=== PATIENT | female | born 1990 | race Caucasian/White ===

== ENCOUNTER 2023-02-02 11:57 | Outpatient (CLI) | payer BC, SELFPAY ==
--- NOTE | 2023-02-02 12:15 | CRLHL7_ITS ---
For Patients: As a result of the Century Cures Act, medical imaging exams and procedure reports are released immediately into your electronic medical record. You may view this report before your referring provider. If you have questions, please contact your health care provider. INDICATION: First trimester scan, establish dates. COMPARISON: 11/16/2021 TECHNIQUE: Real-time mckinley-scale imaging of the pelvis was performed. FINDINGS: Sonographic imaging demonstrates a single living intrauterine gestation. The embryo demonstrates a regular cardiac rate measuring 173 beats per minute. The embryo`s crown-rump length measurement of 2.2 cm corresponds to a gestational age of 8 weeks 6 days with a sonographic due date of 09/08/2023. There is a normal-appearing yolk sac. There are no gross abnormalities noted within the embryo at this early state of development. The gestational sac has a normal appearance. There is no evidence of a perigestational hemorrhage. The amount of fluid within the sac appears appropriate for gestational age. The cervix is closed. The myometrium appears normal. Corpus luteal cyst right ovary. Dermoid cyst left ovary. There are no suspicious fluid collections noted in the cul-de-sac. IMPRESSION: Single living intrauterine with sonographic gestational age 8 weeks 6 days and sonographic due date 09/08/2023. Dictated by Larry Gonzalez MD @ 02/02/2023 1:38:13 PM (Electronically Signed)
== END 2023-02-02 11:58 | disposition home or self-care (01) ==
LOC: US 12:02
PROVIDERS: Visit Provider Advanced Practice Midwife
DX: Z34.91 Encounter for supervision of normal pregnancy, unspecified, first trimester (principal); Z3A.08 8 weeks gestation of pregnancy
CPT/HCPCS: 76817; 93976

== ENCOUNTER 2023-02-10 16:20 | Outpatient (CLI) | payer BC, SELFPAY | END 2023-02-10 16:21 | disposition home or self-care (01) | LOC: NFLDREF 02-11 09:40 | PROVIDERS: Visit Provider Advanced Practice Midwife | DX: Z34.90 Encounter for supervision of normal pregnancy, unspecified, unspecified trimester (principal); Z13.79 Encounter for other screening for genetic and chromosomal anomalies; Z34.80 Encounter for supervision of other normal pregnancy, unspecified trimester | CPT/HCPCS: 80306; 84439; 84443; 86592; 86703; 86762; 86787; 86803; 86850; 86900; 86901; 87086; 87340 ==

== ENCOUNTER 2023-03-02 15:53 | Outpatient (CLI) | payer BC, SELFPAY | END 2023-03-02 15:54 | disposition home or self-care (01) | PROVIDERS: Visit Provider Physician Assistant | DX: Z34.91 Encounter for supervision of normal pregnancy, unspecified, first trimester (principal); Z3A.12 12 weeks gestation of pregnancy | CPT/HCPCS: 84439; 84443; 84481 ==

== ENCOUNTER 2023-04-25 13:03 | Outpatient (CLI) | payer OTHER, SELFPAY ==
--- NOTE | 2023-04-25 13:00 | CRLHL7_ITS ---
For Patients: As a result of the Century Cures Act, medical imaging exams and procedure reports are released immediately into your electronic medical record. You may view this report before your referring provider. If you have questions, please contact your health care provider. INDICATION: Evaluate anatomy. COMPARISON: 02/02/2023 TECHNIQUE: Real time mckinley scale imaging of the fetus was performed as well as color Doppler analysis of the umbilical vessels. FINDINGS: Sonographic imaging demonstrates a single living intrauterine gestation. Fetus demonstrates a regular cardiac rate of 139 beats per minute. Fetus has a variable position. The placenta lies right anterior without evidence of placenta previa. The is of the placenta is located 3.2 cm from the internal cervical os. Amniotic fluid volume appears normal. Single deepest vertical pocket: 4.9 cm. The cervix is closed and measures 4.4 cm in length. The composite ultrasound gestational age is calculated at 21 weeks 2 days with an estimated sonographic due date of 09/03/2023. The estimated weight is 414 grams which lies at the 93rd %. The following biometric measurements were obtained: Biparietal diameter: 5.1 cm/21 weeks 3 days 89th% Head circumference: 18.8 cm/21 weeks 1 day 77th% Abdominal circumference: 16.7 cm/21 weeks 5 days 86th% Femur length: 3.4 cm/20 weeks 6 days 62nd% The HC/AC ratio measures: 1.12 range (1.06-1.24) On anatomic survey, there is a normal appearance of the cerebral ventricles, cavum septi pellucidi, cisterna magna and cerebellum. The nose, lips, and facial profile appear normal. The cervical, thoracic and lumbar spine are well visualized and appear normal. There is a normal four-chamber heart view and the left and right ventricular outflow tracts appear normal. The diaphragm and stomach appear normal. The kidneys and bladder also appear normal. There is a normal three-vessel cord and cord insertion site. The four extremities appear normal. IMPRESSION: Sonographic gestational age 21 weeks 2 days and sonographic due date 09/03/2023. Sonographic age 1 week ahead of the clinical age. No intrinsic abnormalities noted on anatomic survey. Dictated by Larry Gonzalez MD @ 04/26/2023 10:34:47 AM (Electronically Signed)
== END 2023-04-25 13:04 | disposition home or self-care (01) ==
LOC: US 13:04
PROVIDERS: Visit Provider Advanced Practice Midwife
DX: Z34.92 Encounter for supervision of normal pregnancy, unspecified, second trimester (principal); Z3A.21 21 weeks gestation of pregnancy
CPT/HCPCS: 76805

== ENCOUNTER 2023-06-20 13:10 | Outpatient (CLI) | payer OTHER, SELFPAY | END 2023-06-20 13:11 | disposition home or self-care (01) | LOC: NFLDREF 06-23 20:36 | PROVIDERS: Visit Provider Advanced Practice Midwife | DX: Z34.81 Encounter for supervision of other normal pregnancy, first trimester (principal) | CPT/HCPCS: 86592 ==

== ENCOUNTER 2023-08-01 13:00 | Outpatient (RCR) | payer MEDICAID, OTHER, SELFPAY | END 2023-11-29 10:03 | disposition home or self-care (01) | PROVIDERS: Visit Provider Advanced Practice Midwife | DX: O99.891 Other specified diseases and conditions complicating pregnancy (principal); M79.18 Myalgia, other site; R10.2 Pelvic and perineal pain; N39.46 Mixed incontinence; R27.8 Other lack of coordination; Z51.89 Encounter for other specified aftercare | CPT/HCPCS: 97110; 97112; 97161; 97535 ==

== ENCOUNTER 2023-08-15 13:29 | Outpatient (CLI) | payer OTHER, SELFPAY ==
[2023-08-16 22:26] LABS: Strep B DNA Probe Negative (Negative)
[2023-08-17 05:58] LABS: Strep B Susceptibility Needed? No
== END 2023-08-15 13:30 | disposition home or self-care (01) ==
LOC: NFLDREF 13:29
PROVIDERS: Visit Provider Advanced Practice Midwife
DX: Z36.85 Encounter for antenatal screening for Streptococcus B; Z34.83 Encounter for supervision of other normal pregnancy, third trimester
CPT/HCPCS: 87081; 87653

== ENCOUNTER 2023-09-13 13:00 | Outpatient (CLI) | payer OTHER, SELFPAY ==
--- NOTE | 2023-09-13 13:00 | US_ITS ---
Final Report Patient: NEFTALY COLUNGA Facility:?[facility] Patient ID:?[id number] Site Patient ID:?[id number]. Site :?[id number] Study:?US OB Pelvis BPP-09/13/2023 2:14:48 PM Ordering Physician:DAMARIS Final Report: INDICATION: Post dates COMPARISON: 04/25/2023 TECHNIQUE: Real time mckinley scale imaging of the fetus was performed. FINDINGS: Sonographic imaging demonstrates a single living intrauterine gestation. Fetus demonstrates a regular cardiac rate of 133 beats per minute. Fetus has a vertex position. The amniotic fluid volume appears normal and there is a single deepest pocket measurement of 9.3 cm. SKINNY 23.6 cm. The fetus was active and demonstrated normal breathing movements. There was normal flexion and extension of the trunk and extremities. IMPRESSION: Normal biophysical profile score of 8 out of 8. Dictated by Larry Gonzalez MD @ 09/14/2023 1:45:47 PM (Electronic Signature)
== END 2023-09-13 13:01 | disposition home or self-care (01) ==
LOC: US 13:00
PROVIDERS: Visit Provider Advanced Practice Midwife
DX: Z34.83 Encounter for supervision of other normal pregnancy, third trimester (principal); Z3A.40 40 weeks gestation of pregnancy
CPT/HCPCS: 76819

== ENCOUNTER 2023-09-17 17:03 | Inpatient (IN) | payer OTHER, SELFPAY ==
[2023-09-17] VITALS (13 sets, daily range): BP systolic 125–126; BP diastolic 68–77; PULSE 54–66; RESP 16–18; TEMP 36.4–36.8; O2SAT 97; BMI 33.9
--- NOTE | 2023-09-17 16:48 | P.LDBA_ITS ---
Subjective History of Present Illness Date Seen: 09/17/23 Narrative: Patient is being admitted to Labor and Delivery for SROM of clear fluid at 1420 today. She is kehinde some but reports only mild cramping. She is a 32 year old at 41.0 weeks gestation. Her full history and physical was dictated by Chasity Johnson CNM on 08/23/23. Please see this for details. Specific Issues/Plans Partner: Quoc H&P done by DELFINA Muonz on 08/23/2023 1. Dermoid cyst, ovary stable in size from previous u/s. -recheck 2. Anxiety & Depression (more so anxiety) -Has previously done therapy -Took celexa when she was a teenager 3. Subclinical hyperthyroid. TSH 0.070 L, Free T4 1.52 (normal) -referral to endocrine placed -repeat thyroid studies 03/02/2023: TSH .304 normal, Free T4 1.25 normal . Free T3:pending. Discussed normal results with patient. I do not feel endocrinology consult is needed at this time, she can certainly visit with them if she desires. We can repeat thyroid studies in the future as well 4. Varicella non immune - vaccine PP 5. Symphysis Pubis Pain Referral to PT COVID: declines TDAP: 07/04/2023 Flu: received 05/23/23 RSV: declined 07/20/2023 OB - Problem Based A/P Additional Plan (1) 41 weeks gestation of : Status: Acute (2) SROM (spontaneous rupture of membranes): Status: Acute Plan Assessment:?? at 41.0 weeks gestation?? GBS negative? Patient is coping well with challenges of labor.?? Labor type: Spontaneous, Early labor? Category 1 FHR pattern.? complicated by: 1.Dermoid cyst, ovary stable in size from previous u/s. -recheck 2. Anxiety & Depression (more so anxiety) -Has previously done therapy -Took celexa when she was a teenager 3. Subclinical hyperthyroid. TSH 0.070 L, Free T4 1.52 (normal) -referral to endocrine placed -repeat thyroid studies 03/02/2023: TSH .304 normal, Free T4 1.25 normal . Free T3:pending. Discussed normal results with patient. I do not feel endocrinology consult is needed at this time, she can certainly visit with them if she desires. We can repeat thyroid studies in the future as well 4. Varicella non immune - vaccine PP 5. Symphysis Pubis Pain Referral to PT Plan:?? * ?Admit to L & D? * IV access: none needed at this time * Monitoring per policy: intermittent? * Candidate for analgesia of choice.? Planning unmedicated for pain management * Expectant management at this time * Patient encouraged to reposition and ambulate to promote physiologic labor and . * Anticipate ? Delivery/Labor/Induction Plan Plan: expectant management OB Exam Physical Exam Vital signs: Temp Pulse Resp BP Pulse Ox 98 F 60 16 125/77 97 09/17/23 16:10 09/17/23 16:24 09/17/23 16:10 09/17/23 16:24 09/17/23 16:13 Narrative: Vitals Reviewed Constitutional:? Alert and oriented x3 HEENT:? Normocephalic, atraumatic Neck:? Supple Lungs:? Clear to auscultation bilaterally Heart:? Regular rate and rhythm, no murmur, rub or gallop Abdomen:? Soft, nontender, and gravid. Vertex by Drake's, confirmed with cervical exam. Extremities:? No edema or erythema Cervix: 3 cm/80%/-2 station/vertex per RN NST: 130 bpm/moderate variability/+accelerations/-decelerations/contractions Q 2-3 mins lasting 60-90secs Detailed Labor and Delivery Exam Patient Gravid: Yes Fetus (Single) Amniotic Membrane Status: SROM Amniotic Membrane Fluid Description: Clear
--- NOTE | 2023-09-17 22:34 | PM.OBPNL ---
Subjective Date Seen: 09/17/23 Narrative: ?Kiki is coping well with labor pain/contractions. ?Quoc is with her for support. ?She would like to continue with breathing, movement and relaxation for comfort and pain management.?She was recently checked by nursing and found to be 8cm. She plans to go unmedicated for her . Currently in room walking and appears comfortable between contractions. Objective Exam: VSS, afebrile General Appearance:? Calm, cooperative. ?No acute distress. ? Psychiatric Exam: Alert and oriented, appropriate affect Abdomen: Gravid Ctx: ?Q 2-3 min apart. ? ?Strong FHTs: ?Baseline: 125. ? ? Intermittently monitored, no audible decelerations heard SVE: 8/80%/-2 Membranes: ?SROM X 9 hours Vital Signs: Last Vital Signs Temp 97.6 F 09/17/23 22:26 Pulse 54 L 09/17/23 22:27 Resp 18 09/17/23 22:26 BP 125/74 09/17/23 22:27 Pulse Ox 97 09/17/23 16:13 Contractions Monitor mode: Palpation Contraction pattern: Regular Contraction intensity: Strong/Firm Assessment Assessment: active labor Amniotic Membrane Status: SROM Plan Plan: Assessment:?? at 41.0 gestation?? GBS neg Patient is coping well with challenges of labor.?? Labor type: Spontaneous, Active labor? Intermittent monitoring with no audible decelerations.? complicated by: 1.Dermoid cyst, ovary stable in size from previous u/s. -recheck 2. Anxiety & Depression (more so anxiety) -Has previously done therapy -Took celexa when she was a teenager 3. Subclinical hyperthyroid. TSH 0.070 L, Free T4 1.52 (normal) -referral to endocrine placed -repeat thyroid studies 03/02/2023: TSH .304 normal, Free T4 1.25 normal . Free T3:pending. Discussed normal results with patient. I do not feel endocrinology consult is needed at this time, she can certainly visit with them if she desires. We can repeat thyroid studies in the future as well 4. Varicella non immune - vaccine PP 5. Symphysis Pubis Pain Referral to PT Labor complicated by: none? Plan:?? Continue with routine intrapartum cares as ordered.?? Patient encouraged to move and change positions to promote physiologic labor and .?? Nonpharmacologic comfort measures per patient preference. Candidate for analgesia of choice if desired. Anticipate progress to NVD. ?
[2023-09-18] VITALS (22 sets, daily range): BP systolic 107–138; BP diastolic 62–77; PULSE 64–81; RESP 16–18; TEMP 36.7–37.1; O2SAT 97–100
--- NOTE | 2023-09-18 02:43 | W.PM.OBVAGDE ---
OB Procedure Vag Delivery Mother Details Mother Details: The patient is a 32 year-old, 2, Para 1, admitted on 09/17/23 at 41.0 Days gestation for SROM clear fluid. : 2 Para: 2 Weeks Gestation: 41.1 Admission Date: 09/17/23 Additional Details Amniotic Membrane Status: SROM Amniotic Membrane Rupture Date: 09/17/23 Amniotic Membrane Rupture Time: 14:20 Amniotic Membrane Fluid Description: Clear Analgesia/Anesthesia Type: None Waterbirth: No Pitcoin: No Intrapartal Events: None Labor Onset: 21:00 Complete: 02:05 Pushin:05 Heart: heart tones during second stage were not monitored because of the short duration of pushing. Intermittent monitoring just prior to pushing was reassuring with average HR of 120 no audible decelerations heard. Delivery Details Delivery Date: 09/18/23 Delivery Time: 02:08 Route of delivery: Infant Gender: Male Infant Viability: Alive; Heart Rate Present Position at Delivery: OA Delivery Details: 32?y.o?at 41.1 weeks.? Kiki arrived with SROM of clear fluid around 1420 on 09/17/23. She was kehinde but feeling only occasional cramping. She pumped to stimulate labor and then became more uncomfortable with contractions. Around 0000 she felt pushy but then this sensation stopped and her contractions spaced out. She then decided to pump again and contractions resumed. She repositioned frequently and was starting to feel like she needed to push soon, then began to ask for an epidural. Nursing began to prepare for this and while waiting pt wanted to sit on the toilet with contractions. With the next contraction she began to spontaneously push and the baby rapidly descended to . With the next push the head delivered, gentle traction of the head did not move the and a nuchal cord was felt. Unable to reduce the cord and the shoulder felt impacted behind the pubic bone, pt repositioned leaning back, then lunging and then finally supine and Ronen performed. After 50 seconds from delivery of the head, the body was delivered somersaulted through nuchal cord. Cord reduced after delivery, then clamped and cut to be handed off to team for resuscitation. Cord gasses were collected and sent after delivery. ? She became complete at 0205 (assumed with pushing).??She pushed on the toilet effectively.? Spontaneous vaginal delivery at 0208 of?a viable?male infant.??Delivered in vertex OA position.??50 second shoulder dystocia? weak cry and poor respiratory effort noted. ??Infant brought to warmer.??Cord?was clamped and cut immediately.? Shoulder dystocia: yes? Nuchal cord: yes times one? Meconium stained?fluid: no ? Water : no? ? ? 4 at 1 minute and 6 at 5 minutes, and 8 at 10 minutes. ? Placenta delivered spontaneously and?complete?at 0220 with a?3 vessel?cord.?? Bleeding controlled with fundal massage .? ? Mother and infant were stable after delivery.? ? Lacerations:? ??1st degree laceration, not bleeding, not repaired. One small abrasion about 1 cm, just below the clitoris not repaired not bleeding. ? Bleeding?post delivery?was: moderate. ?The fundus was firm to palpation.? Blood loss: 400?mL.? Blood loss measurement type: QBL? ? ? Sponge,?lap?and needles counts are correct.? Mother and were stable after delivery.? 1 Minute Interval Total Score: 4 5 Minute Interval Total Score: 6 10 Minute Interval Total Score: 8 Additional Details Shoulder Dystocia: Yes Placenta Delivery Time: 02:20 Placental Delivery Description: Spontaneous Procedure Done: Global Blood Loss: 400 Laceration: Perineal - 1st Degree Blood Loss Measurement Type: QBL Bakri Used: No Sponge/Need Count Correct: Yes Cord Vessel Description: 3 Vessels, Nuchal Cord (times one) and Delivered through Event Summary Status: Mother and infant were stable after delivery. Disposition: floor
[2023-09-18] MEDS: IBUPROFEN 600 MG TABLET PO ×2 (04:15→12:38)
[2023-09-18] MEDS: DOCUSATE SODIUM 100 MG CAPSULE PO (12:40)
[2023-09-19] MEDS: DOCUSATE SODIUM 100 MG CAPSULE PO (08:01)
[2023-09-19 09:05] VITALS: BP 109/78; PULSE 74; RESP 16; TEMP 36.6; O2SAT 98
--- NOTE | 2023-09-19 09:21 | PM.OBDSVD1 ---
DS: Providers Provider Date Seen: 09/19/23 Date of admission: 09/17/23 17:03 Primary care physician: Esperanza Ritter CNM Admitting Clinician: Yesica Merritt MD Attending Physician on discharge: Esperanza Ritter CNM Date of Discharge: 09/19/23 DS: Diagnosis Discharge Diagnosis (1) care and examination immediately after delivery: Status: Acute (2) Lactating mother: Status: Acute Exam Narrative: Exam Narrative: VSS, afebrile GENERAL APPEARANCE: ?normal affect, alert, no distress MOOD: ?appropriate HEENT: normocephalic, neck supple, full ROM CHEST: ?Symmetrical chest wall movement. ?Normal respiratory effort. ?Clear to auscultation HEART: ?regular rate and rhythm ABDOMEN: ?soft, non-tender. Uterine fundus is firm, at Umbilicus, Midline and is appropriate for the stage of recovery. ?Bowel sounds present. PERINEUM: ?mild edema of the perineum, there is a 1st degree laceration that is healing well. EXTREMITIES: ?normal and no edema Const: Vital Signs, click to edit/add: Vital Signs - 24 hr 09/18/23 10:24 09/18/23 14:12 09/18/23 17:51 Temperature 98.0 F 98.5 F 98.0 F Pulse Rate [Pulse Oximeter] 81 81 81 Respiratory Rate 18 16 16 Blood Pressure [Ri ght Arm] 110/75 117/77 124/76 Pulse Oximetry 97 97 97 Oxygen Delivery Me thod Room Air Room Air Room Air 09/18/23 20:21 09/18/23 23:08 Temperature 98.1 F Pulse Rate [Pulse Oximeter] 73 71 Respiratory Rate 16 16 Blood Pressure [Ri ght Arm] 107/74 108/70 Pulse Oximetry 100 98 Oxygen Delivery Me thod Room Air Room Air Documenting provider has reviewed patient's vital signs: yes OB - DS: Summary Hospital Course Hospital Course: Kiki is a 32 y.o. who was admitted to L & D for SROM. ?She had an NVD with shoulder dystocia.?The patient feels well. ?The pain is well controlled with current medications. ?She has no new complaints. ?She is breast feeding and reports things are going well.? the patient has done well.? Vitals have been stable.? She has remained afebrile.? Has a good appetite, is tolerating a general diet. ?She is voiding without difficulty.? She is passing gas and has not had a bowel movement.? She is ambulating and denies any dizziness.? Has Small amount of rubra lochia. ?She is undecided about what she plans for prevention. Peripartum Data Infant delivery method: Vaginal Laceration description: Perineal - 1st Degree complications: none Infant Gender: Male Discharge Plan: Home Status at Discharge Functional status at discharge: independent ambulation Overall status at discharge: patient is progressing back to baseline Time Spent with Patient Time attestation: Total time spent providing and/or coordinating discharge services: Time spent: Less than 30 minutes Discharge Plan Discharge Disposition: Home, Self-Care Date of Admission: 09/17/23 17:03 Attending Provider on Discharge: Esperanza Ritter Primary Care Provider: Esperanza Ritter Condition: Stable Anticipated Discharge Date/Time: 09/19/23 12:00 Discharge Medications: New acetaminophen 500 mg Tablet 1,000 mg PO Q6H PRNQty: 0 0RF docusate sodium 100 mg Capsule 100 mg PO DAILY Qty: 90 2RF ibuprofen 600 mg Tablet 600 mg PO Q6H PRNQty: 60 0RF Continued magnesium oxide 250 mg magnesium tablet 250 mg PO QDAY cholecalciferol (vitamin D3) 50 mcg (2,000 unit) capsule 50 mcg PO QDAY DHA 200 mg capsule 200 mg PO DAILY Discontinued docusate sodium [Colace] 100 mg capsule 100 mg PO QDAY PRN Discharge Orders: Discharge Order (Routine); Ordered 09/19/23 Ordered By: Esperanza Ritter Patient Education: OB Over the Counter Medication Information, OB Vaginal/Breast Feeding Activity Level: Activity as Tolerated Discharge Diet: Regular Follow Up Appointments: Esperanza Ritter CNM [Primary Care Provider] - [facility] [Provider Group] Forms: [employer] Info Instructions
[2023-09-19 18:15] LABS: Rapid Plasma Reagin (RPR) Non Reactive (Non Reactive)
== END 2023-09-19 11:02 | disposition home or self-care (01) | DRG 807 ==
LOC: OB OUT 09-21 11:22
PROVIDERS: Admitting Provider Advanced Practice Midwife; PCP Advanced Practice Midwife; Visit Provider Obstetrics & Gynecology
DX: O70.0 First degree perineal laceration during delivery (principal); Z37.0 Single live birth; O48.0 Post-term pregnancy; Z3A.41 41 weeks gestation of pregnancy; O99.344 Other mental disorders complicating childbirth; F41.9 Anxiety disorder, unspecified; F32.A Depression, unspecified; D27.1 Benign neoplasm of left ovary; O99.284 Endocrine, nutritional and metabolic diseases complicating childbirth; O99.892 Other specified diseases and conditions complicating childbirth; M79.18 Myalgia, other site; Z78.9 Other specified health status
CPT/HCPCS: 36415; 86592; G0463; A9270; J2371

== ENCOUNTER 2023-11-07 09:26 | Emergency (ER) | payer OTHER, SELFPAY ==
[2023-11-07 09:32] VITALS: BP 104/68; PULSE 61; RESP 16; TEMP 36.4; O2SAT 97; BMI 29.1
--- NOTE | 2023-11-07 10:06 | CT_ITS ---
Patient: NEFTALY COLUNGA Facility:?[facility] Patient ID:?[id number] Site Patient ID:?[id number]. Site :?[id number] Study:?CT-Head WITHOUT-11/07/2023 11:01:06 AM Ordering Physician:?DR. GARCIA Final Report: Indication: Seven weeks , vertigo. Technique: Noncontrast CT of the head with multiplanar reconstruction utilizing bone and soft tissue algorithms. Comparison: None available. Findings: No acute intracranial hemorrhage. The mckinley-white matter interface is preserved. The ventricles are normal in size. No abnormal extra-axial fluid collection is identified. The skull base and calvarium are within normal limits. The orbits are unremarkable in appearance. The paranasal sinuses and mastoid air cells are clear. Impression: No acute intracranial abnormality. Please note that all CT scans at this facility use dose modulation, iterative reconstruction, and/or weight-based dosing when appropriate to reduce radiation dose to as low as reasonably achievable. Dictated by Siva Manzanares MD @ 11/07/2023 11:05:48 AM Signed by:?Siva Manzanares MD @11/07/2023 11:05:48 AM (Electronic Signature)
--- NOTE | 2023-11-07 10:08 | ED_ITS ---
HPI - Dizziness General Date Seen: 11/07/23 Chief Complaint: Dizziness/Vertigo Stated Complaint: 7 weeks post , bleeding, dizzy, vomiting Time Seen by Provider: 11/07/23 09:51 Source: patient and family Mode of arrival: ambulatory Limitations: no limitations History of Present Illness HPI Narrative: Patient is a very nice 33-year-old female who presents here 7 weeks , vaginal delivery, with acute nausea vomiting, and vertigo. She has had this for 2 3 days became intensely worse today, notes that when she is not moving her head she has vertigo. She feels that by looking at me it is somewhat improves or when she closes her eyes. She does get the sensation that there is rotation. She has a hard time walking, primarily cause above balance region she denies no numbness tingling associated with this there is no history of falls or injury. She has had no fevers chills, or sweats, she is breast-feeding. She did not take any medications for this. Does not take any chronic medications no history of headaches and does note that she has a dull headache with associated with this. Presents here with her in her young child. Did deliver at our hospital here. No rashes, no problems with speech, no problems with memory. Reports no other visual changes, but does report that she had a feeling that something was coming out of her right ear, couple days ago fluid like. But this is stopped. No history of significant ear problems. Denies altered mental status. Denies any chest pain, does have nausea and vomiting but denies any abdominal pain continues to have some lochia and this is remained stable for the last 2-3 weeks. Relieving factors: remaining still, medication, lying down and keeping eyes closed Associated neuro symptoms: gait ataxia Related Data Home Medications Medication Instructions Recorded Confirmed docosahexaenoic acid 200 mg 200 mg PO DAILY 02/02/23 11/07/23 capsule ( DHA) cholecalciferol (vitamin D3) 50 50 mcg PO QDAY 06/20/23 11/07/23 mcg (2,000 unit) capsule Previous Rx's Medication Instructions Recorded ondansetron 4 mg disintegrating 4 mg PO BID-TID PRN nausea and 11/07/23 tablet vomiting #10 tabs prednisone 20 mg tablet 20 mg PO BID #10 tabs 11/07/23 Allergies Allergy/AdvReac Type Severity Reaction Status Date / Time tetracycline Allergy Mild Unknown Verified 09/12/23 12:31 Review of Systems Status of ROS: Reports: 10 or more systems reviewed and unremarkable except as noted in History and below [facility] Medical History History of shoulder dystocia in prior ?Z87.59 - Personal history of other complications of , childbirth and the puerperium (ICD-10) Normal spontaneous vaginal delivery (10/13/21) ?O80 - Encounter for full-term uncomplicated delivery (ICD-10) Surgical History History of tonsillectomy ?Z90.89 - Acquired absence of other organs (ICD-10) Family History Father Diabetes Paternal Grandfather Diabetes Myocardial infarction Mother Myocardial infarction Maternal Grandfather Cardiovascular disease Maternal Grandmother Cardiovascular disease Paternal Grandmother Stroke Social History Narrative: SOCIAL? ? Education: high school, cosmetology? ? Work: stay at home mom? ? Partner: Quoc, , heavy truck technician? ? Lives with: Quco, son ? ? Pets: dogs? ? Abuse: Denies past Unable to assess current, partner present? ? Special Diet: Denies? ? Ok with a blood transfusion: yes? ? Culture or rastafari beliefs: denies? RISK FACTORS? ? Exercise Times/wk: walk, cardio, strength training. ? ? Depression/Anxiety: both. anxiety mainly.? ? Previous Treatments: teenager, took celexa. Therapy: has done previously Seat Belt Use: Routinely ? Smoking: Denies past/present? ? Alcohol/day: Denies while ? ? Caffeine: denies? ? Drug Use: Denies past/present? ? What is your current living situation?: I presently have a place to live Problems where you live: no known problems In the past 12 months, utilities in danger of being shut off: no In past 12 months, lack of transportation kept you from medical appts, meetings, work, or getting things needed for daily living: no In the past 12 mos, have been you worried that your food would run out before you had money to buy more?: never true In the past 12 mos, the food you bought just didn't last and you didn't have money to buy more?: never true Smoking Status: Former smoker How often does anyone, including family, friends and others, physically hurt you : never How often does anyone, including family, friends and others, insult or talk down to you: never How often does anyone, including family, friends and others, threaten you with harm: never How often does anyone, including family, friends and others, scream or curse at you: never Little interest or pleasure in doing things: not at all Feeling down, depressed, or hopeless: not at all Exam Narrative: Exam Narrative: On examination in room 4, she appears to be in no apparent distress speaking entirely normal with me. Does want to keep her eyes closed. Her GCS is 15/15, alert oriented x3 her pupils are equal round reactive to light and equal bilaterally. She does have beating nystagmus laterally to the left. Cranial nerves 3-12 are normal, TMs are normal bilaterally. Oropharynx is normal, her neck is supple, normal range of motion no meningismus, no notable lymph adenopathy anterior posterior chains. Her chest is good air entry bilaterally with no wheezing crackles noted heart sounds are normal no clicks murmurs or gallops her abdomen is soft, cannot feel a gravid uterus, with no tenderness noted. CVA is nontender. Her extremities all move normally she has normal power in upper lower extremities, and she has normal heel-good in her lower extremities. Proximal distal power is assessed and normal. Fine motor movements are normal she is right-hand dominant. Hints test show a abnormal moves to be locular reflex, not being per served. Or positive head impulse test she has unidirectional nystagmus, to the left. There is skew deviation. Const: Vital Signs, click to edit/add: Vital Signs - 24 hr 11/07/23 09:32 11/07/23 12:30 Temperature 97.6 F 98.6 F Pulse Rate [Pulse Oximeter] 61 60 Respiratory Rate 16 18 Blood Pressure [Ri ght Upper Arm] 104/68 107/66 Pulse Oximetry 97 99 Oxygen Delivery Me thod Room Air Room Air Documenting provider has reviewed patient's vital signs: yes Course Course ED Course: patient felt better with her time here, she noted that she is able to breastfeed him move around somewhat better, she still felt a little bit off balance. I discussed with that I discussed with ENT , we will try the prednisone for his tubular neuronitis, and then follow-up next week with ENT if ongoing signs and symptoms Vital Signs Vital signs: Initial Vital Signs Temperature 97.6 F 11/07/23 09:32 Temperature Source Temporal Artery Scan 11/07/23 09:32 Pulse Rate 61 11/07/23 09:32 Respiratory Rate 16 11/07/23 09:32 Blood Pressure 104/68 11/07/23 09:32 Blood Pressure Mean 80 11/07/23 09:32 Blood Pressure Position Sitting 11/07/23 09:32 Pulse Oximetry 97 11/07/23 09:32 Oxygen Delivery Method Room Air 11/07/23 09:32 Vital Signs Temperature 97.6 F 11/07/23 09:32 Pulse Rate 61 11/07/23 09:32 Respiratory Rate 16 11/07/23 09:32 Blood Pressure 104/68 11/07/23 09:32 Pulse Oximetry 97 11/07/23 09:32 Oxygen Delivery Method Room Air 11/07/23 09:32 Temperature 98.6 F 11/07/23 12:30 Pulse Rate 60 11/07/23 12:30 Respiratory Rate 18 11/07/23 12:30 Blood Pressure 107/66 11/07/23 12:30 Pulse Oximetry 99 11/07/23 12:30 Oxygen Delivery Method Room Air 11/07/23 12:30 Medications Administered Medications: Discontinued Medications Generic Name Dose Route Start Last Admin Trade Name Freq PRN Reason Stop Dose Admin Acetaminophen 1,000 mg 11/07/23 10:33 11/07/23 10:44 Acetaminophen 500 Mg Tablet PO 11/07/23 10:34 1,000 mg ONCE ONE Administration Sodium Chloride 1,000 mls @ 1,000 mls/hr 11/07/23 10:15 11/07/23 10:44 0.9 % Sodium Chloride 1000 Ml IV 11/07/23 11:14 Infused .Q1H QUINTIN Infusion Ondansetron HCl 4 mg 11/07/23 10:05 11/07/23 10:12 Ondansetron 2 Mg/Ml Inj IVP 11/07/23 10:06 4 mg ONCE ONE Administration MDM - Dizziness MDM Narrative Medical decision making narrative: Life-threatening differential diagnosis considered include, CVA, other differential diagnosis include BPPV, labyrinthitis, Meniere's disease, vestibular neuronitis, migraine, multiple sclerosis, otitis media, viral syndrome as well as other etiologies Considering her history, I a.m. worried about numerous positives on her examination including the test of Hints. She is , and within the window that 1 would see central vein thrombosis, or some other coagulopathy is cause such as stroke. It has been ongoing for greater than 24 hours, we will go ahead and give her some fluids, I did discuss using medications with her. To see we can help some of her symptoms we will try some IV Zofran, I did talk to her about benzodiazepines but then she would have to pump and dump, and she would like to try the other medications 1st. Regular head CT is ordered but we need to do an MRI. Based on with the findings. Differential Diagnosis Differential diagnosis: Likely adverse reaction to drug, benign paroxysmal positional vertigo, orthostatic hypotension, vertebral basilar insufficiency, cerebrovascular accident, acute vestibular neuronitis and transient cerebral ischemia Medical Records Attestation: I reviewed the patient's medical records. Lab Data Attestation: I reviewed the patient's lab results. Labs: Lab Results 11/07/23 11/07/23 Range/Units 09:55 10:25 WBC 9.51 (4.50-11.00) K/uL RBC 4.07 (4.00-5.20) m/uL Hgb 12.4 (12.0-16.0) gm/dL Hct 38.1 (33.0-51.0) % MCV 94 (80-100) fL MCH 31 (26-34) pg MCHC 33 (32-36) gm/dL RDW Coeff of Tello 11.7 (11.5-15.5) % Plt Count 230 (140-440) K/uL Neut % (Auto) 78.6 H (42.0-72.0) % Lymph % (Auto) 12.7 L (20-44) % [place] % (Auto) 4.1 (0.0-11.0) % Eos % (Auto) 3.9 (0.0-7.0) % Baso % (Auto) 0.5 (0.0-3.0) % Neut # (Auto) 7.50 H (1.7-7.0) K/uL Lymph # (Auto) 1.20 (0.90-2.90) K/uL [place] # (Auto) 0.40 (0.00-0.90) K/UL Eos # (Auto) 0.37 (0.00-0.50) K/uL Baso # (Auto) 0.05 (0.00-0.30) K/uL Abs Immat Gran (auto) 0.02 (0.00-0.30) K/uL Imm/Tot Granulo (auto) 0.2 % Sodium 139 (135-149) mmol/L Potassium 4.3 (3.6-5.1) mmol/L Chloride 109 (96-114) mmol/L Carbon Dioxide 24 (20-32) mmol/L Anion Gap 6 L (7-15) mEq/L BUN 18 (5-24) mg/dL Creatinine 0.6 (0.5-1.5) mg/dL Estimated Creat Clear 117.76 Estimated GFR 120 ml/min Glucose 99 (60-115) mg/dL Calcium 9.2 (8.4-10.6) mg/dL Ethyl Alcohol < 0.01 L (0.01-0.03) % SARS-CoV-2 (PCR) Negative SARS-CoV-2 (Negative) Influenza Type A (PCR) Negative PCR FLU A (Negative) Influenza Type B (PCR) Negative PCR FLU B (Negative) RSV (PCR) Negative PCR RSV (Negative) Imaging Data CT scan - head: Attestation: I have reviewed the pertinent imaging results. My impression: negative head CT Radiologist's impression: Patient: NEFTALY COLUNGA Facility:?[facility] Patient ID:?[id number] Site Patient ID:?[id number]. Site :?1990 Study:?CT Head WITHOUT-11/07/2023 11:01:06 AM Ordering Physician:?DR. GAYTAN Final Report: Indication: Seven weeks , vertigo. Technique: Noncontrast CT of the head with multiplanar reconstruction utilizing bone and soft tissue algorithms. Comparison: None available. Findings: No acute intracranial hemorrhage. The mckinley-white matter interface is preserved. The ventricles are normal in size. No abnormal extra-axial fluid collection is identified. The skull base and calvarium are within normal limits. The orbits are unremarkable in appearance. The paranasal sinuses and mastoid air cells are clear. Impression: No acute intracranial abnormality. Please note that all CT scans at this facility use dose modulation, iterative reconstruction, and/or weight-based dosing when appropriate to reduce radiation dose to as low as reasonably achievable. Dictated by Siva Manzanares MD @ 11/07/2023 11:05:48 AM (Electronic Signature) MRI - head: Attestation: I have reviewed the pertinent imaging results. My impression: Negative MRI MRA of the head Radiologist's impression: Patient: NEFTALY COLUNGA Facility:?[facility] Patient ID:?[id number] Site Patient ID:?[id number]. Site :?1990 Study:?MRI Head MRV W/O-11/07/2023 12:11:27 PM Ordering Physician:?JAMES GAYTAN Final Report: Indication: Vertigo, 8 weeks . Technique: Noncontrast MRV of the head using [id number] technique. Comparison: None available. Findings: Patent sigmoid, transverse straight, and superior sagittal sinuses. No significant stenosis or suspicious filling defect. On limited evaluation, the internal cerebral veins and imaged intracranial arteries also appear within normal limits. Impression: Unremarkable noncontrast MRA of the head. No evidence of dural venous sinus stenosis or thrombosis. Dictated by Siva Manzanares MD @ 11/07/2023 12:33:21 PM (Electronic Signature) Patient: NEFTALY COLUNGA Facility:?[facility] Patient ID:?[id number] Site Patient ID:?[id number]. Site :?1990 Study:?MRI Head W/O-11/07/2023 12:11:03 PM Ordering Physician:JAMES PRADO Final Report: Indication: Vertigo, 8 weeks . Technique: Multisequence multiplanar MRI of the brain without the use of intravenous contrast. Comparison: Correlated with CT dated same day at 10:52 a.m.. Findings: No evidence of acute ischemia. Normal signal intensity of the brain parenchyma. The ventricles are normal in size. No abnormal extra-axial fluid collection is identified. Flow voids of the larger intracranial arteries are preserved. Bone marrow signal intensity of the calvarium is within normal limits. The orbits are unremarkable. The paranasal sinuses and mastoid air cells are predominantly clear. Impression: Unremarkable noncontrast MRI of the brain. Dictated by Siva Manzanares MD @ 11/07/2023 12:29:50 PM (Electronic Signature) Discharge Plan Discharge Clinical Impression: Acute vestibular neuronitis Patient Disposition: Home w/ Parent or Adult Condition: Improved Instructions: Vertigo (ED) Additional Instructions: Follow up appointment is scheduled at the [facility] on 11/15 with a 3pm appointment time. Please check in a few minutes earlier to complete paperwork. If you have any questions or need to reschedule, please call [phone]. [facility] [address] [place] [address] Prescriptions: New prednisone 20 mg tablet 20 mg PO BID Qty: 10 0RF ondansetron 4 mg tablet,disintegrating 4 mg PO BID-TID PRN (Reason: nausea and vomiting) Qty: 10 0RF No Action cholecalciferol (vitamin D3) 50 mcg (2,000 unit) capsule 50 mcg PO QDAY DHA 200 mg capsule 200 mg PO DAILY Follow Up/Referrals: Esperanza Ritter CNM [Primary Care Provider] - Stand Alone Forms: MyHealth Info Instructions
[2023-11-07] MEDS: ONDANSETRON 2 MG/ML inj 4 MG IVP (10:12)
[2023-11-07] MEDS: 0.9 % SODIUM CHLORIDE 1000 ml 1,000 ML IV (10:12)
[2023-11-07 10:19] LABS: Basophils Absolute Auto 0.05 K/uL (0.00-0.30); Basophils Percent Auto 0.5 % (0.0-3.0); Eosinophils Absolute Auto 0.37 K/uL (0.00-0.50); Eosinophils Percent Auto 3.9 % (0.0-7.0); Hematocrit 38.1 % (33.0-51.0); Hemoglobin* 12.4 gm/dL (12.0-16.0); Immature Granulocytes Abs Auto 0.02 K/uL (0.00-0.30); Immature Granulocytes Pct Auto 0.2 %; Lymphocytes Percent Auto 12.7 % (20-44); Mean Corpuscular HGB Conc 33 gm/dL (32-36); Mean Corpuscular Hemoglobin 31 pg (26-34); Mean Corpuscular Volume 94 fL (80-100); Monocytes Percent Auto 4.1 % (0.0-11.0); Neutrophils Percent Auto 78.6 % (42.0-72.0); Platelet Count* 230 K/uL (140-440); RDW Coefficient of Variation % 11.7 % (11.5-15.5); Red Blood Count 4.07 m/uL (4.00-5.20); White Blood Count* 9.51 K/uL (4.50-11.00)
[2023-11-07 10:20] LABS: Slide Review Reflex No
[2023-11-07 10:35] LABS: Chloride* 109 mmol/L (96-114); Potassium* 4.3 mmol/L (3.6-5.1); Sodium* 139 mmol/L (135-149)
[2023-11-07 10:37] LABS: Creatinine* 0.6 mg/dL (0.5-1.5); Est. Creatinine Clearance* 117.76; Estimated Glomerular Filt Rate 120 ml/min
[2023-11-07 10:38] LABS: Anion Gap 6 mEq/L (7-15); Blood Urea Nitrogen* 18 mg/dL (5-24); Carbon Dioxide* 24 mmol/L (20-32); Glucose* 99 mg/dL (60-115)
[2023-11-07 10:39] LABS: Calcium* 9.2 mg/dL (8.4-10.6)
[2023-11-07 10:40] LABS: Ethanol* < 0.01 % (0.01-0.03)
--- NOTE | 2023-11-07 10:42 | MR_ITS ---
Patient: NEFTALY COLUNGA Facility:?[facility] Patient ID:?[id number] Site Patient ID:?[id number]. Site :?1990 Study:?MRI-Head W/O-11/07/2023 12:11:03 PM Ordering Physician:?GERARDO GARCIA Final Report: Indication: Vertigo, 8 weeks . Technique: Multisequence multiplanar MRI of the brain without the use of intravenous contrast. Comparison: Correlated with CT dated same day at 10:52 a.m.. Findings: No evidence of acute ischemia. Normal signal intensity of the brain parenchyma. The ventricles are normal in size. No abnormal extra-axial fluid collection is identified. Flow voids of the larger intracranial arteries are preserved. Bone marrow signal intensity of the calvarium is within normal limits. The orbits are unremarkable. The paranasal sinuses and mastoid air cells are predominantly clear. Impression: Unremarkable noncontrast MRI of the brain. Dictated by Siva Manzanares MD @ 11/07/2023 12:29:50 PM Signed by:?Siva Manzanares MD @11/07/2023 12:29:50 PM (Electronic Signature)
[2023-11-07] MEDS: ACETAMINOPHEN 500 MG TABLET 1000 MG PO (10:44)
--- NOTE | 2023-11-07 10:48 | MR_ITS ---
Patient: NEFTALY COLUNGA Facility:?[facility] Patient ID:?[id number] Site Patient ID:?[id number]. Site :?1990 Study:?MRI-Head MRV W/O-11/07/2023 12:11:27 PM Ordering Physician:?GERARDO GARCIA Final Report: Indication: Vertigo, 8 weeks . Technique: Noncontrast MRV of the head using [id number]-rr-mwnfrt technique. Comparison: None available. Findings: Patent sigmoid, transverse straight, and superior sagittal sinuses. No significant stenosis or suspicious filling defect. On limited evaluation, the internal cerebral veins and imaged intracranial arteries also appear within normal limits. Impression: Unremarkable noncontrast MRA of the head. No evidence of dural venous sinus stenosis or thrombosis. Dictated by Siva Manzanares MD @ 11/07/2023 12:33:21 PM Signed by:?Siva Manzanares MD @11/07/2023 12:33:21 PM (Electronic Signature)
[2023-11-07 11:09] LABS: PCR FLU A Negative PCR FLU A (Negative); PCR FLU B Negative PCR FLU B (Negative); PCR RSV Negative PCR RSV (Negative); SARS PCR* Negative SARS-CoV-2 (Negative)
[2023-11-07 12:30] VITALS: BP 107/66; PULSE 60; RESP 18; TEMP 37; O2SAT 99
[2023-11-07] MEDS: predniSONE 20 MG TABLET 40 MG PO (12:57)
== END 2023-11-07 12:57 | disposition home or self-care (01) ==
PROVIDERS: Emergency Provider Family Medicine; PCP Advanced Practice Midwife
DX: H81.23 Vestibular neuronitis, bilateral (principal); Z3A.01 Less than 8 weeks gestation of pregnancy
CPT/HCPCS: 36415; 70450; 70544; 70551; 80048; 82077; 85025; 87631; 96374; 99284; 99285; A9270; J2405; J7030; J7512

== ENCOUNTER 2023-11-16 10:43 | Outpatient (CLI) | payer OTHER, SELFPAY ==
--- NOTE | 2023-11-16 11:00 | US_ITS ---
Patient: NEFTALY COLUNGA Facility:?[facility] Patient ID:?[id number] Site Patient ID:?[id number] Site :?1990 Study:?US-OB Pelvis TV pelvic-11/16/2023 11:54:31 AM Ordering Physician:Inocencia Turner Final Report: CLINICAL HISTORY: left ovarian dermoid, post continued vag. bleed. pelvic pain Comparison 02/02/2023 TECHNIQUE: 2D mckinley scale ultrasound. In addition color Doppler and spectral Doppler analysis was performed of the pelvis using a transvaginal approach. FINDINGS: On transvaginal imaging, the myometrium has a normal uniform echotexture. The uterus measures 7.2 x 3.7 x 5.8 cm. The endometrial lining measures 7.8 mm in thickness. The right ovary measures 4.2 x 2.6 x 2.3 cm in size and the left ovary measures 7.9 x 5.2 x 5.3 cm. The ovaries demonstrate normal arterial and venous blood flow on color Doppler and spectral Doppler analysis. There are no suspicious fluid collections within the cul-de-sac. Simple right ovarian cyst is present measuring 2.7 x 1.9 x 2.2 cm. Echogenic left ovarian cyst is present measuring 2.8 x 2.5 x 2.5 cm. Fluid surrounds this echogenic focus measuring 8.2 x 4.8 x 5.3 cm. IMPRESSION: No significant interval change in complex left ovarian cyst with mixed echotexture including hypoechoic and hyperechoic areas. The entire cyst measures 8.2 cm and the echogenic focus measures 2.8 cm. No pelvic free fluid or torsion. Previously, the entirety of this cyst measured 6.5 x 3.8 x 5.6 cm. Dictated by Larry Gonzalez MD @ 11/16/2023 12:42:47 PM Signed by:?Larry Gonzalez MD @11/16/2023 12:42:47 PM (Electronic Signature)
== END 2023-11-16 10:44 | disposition home or self-care (01) ==
LOC: US 10:44
PROVIDERS: Visit Provider Advanced Practice Midwife
DX: D27.1 Benign neoplasm of left ovary (principal); O72.1 Other immediate postpartum hemorrhage; R10.2 Pelvic and perineal pain
CPT/HCPCS: 76830; 93976